=== PATIENT | female | born 1980 | race Caucasian/White ===

== ENCOUNTER → 2022-09-26 | Emergency (ER) | payer OTHER ==
[~2022-09-26] VITALS: Ht 152.4 cm; Wt 115.7 kg
== END | disposition home or self-care (01) ==
LOC: ER 07:34 → EDBD 07:37 → ER 07:37
DX: S92.311A Displaced fracture of first metatarsal bone, right foot, initial encounter for closed fracture (principal); S92.321A Displaced fracture of second metatarsal bone, right foot, initial encounter for closed fracture; S92.331A Displaced fracture of third metatarsal bone, right foot, initial encounter for closed fracture; X58.XXXA Exposure to other specified factors, initial encounter; Y93.89 Activity, other specified; Y92.89 Other specified places as the place of occurrence of the external cause; Y99.9 Unspecified external cause status; Z88.6 Allergy status to analgesic agent; Z88.0 Allergy status to penicillin

== ENCOUNTER 2022-09-30 07:05 | Outpatient (CLI) | payer OTHER ==
[~2022-09-30] VITALS: Ht 152.4 cm; Wt 115.7 kg
== END 2022-09-30 07:06 | disposition home or self-care (01) ==
LOC: LAB 07:05
PROVIDERS: ATTEND Orthopaedic Surgery
DX: D64.89 Other specified anemias (principal); E88.89 Other specified metabolic disorders; D68.8 Other specified coagulation defects; N39.0 Urinary tract infection, site not specified; A49.02 Methicillin resistant Staphylococcus aureus infection, unspecified site; Z76.89 Persons encountering health services in other specified circumstances; I49.9 Cardiac arrhythmia, unspecified; I10 Essential (primary) hypertension

== ENCOUNTER 2022-10-08 07:41 | Day surgery (SDC) | payer OTHER | END 2022-10-08 20:40 | disposition home or self-care (01) | LOC: CIR.AMB 07:41 | PROVIDERS: ATTEND Orthopaedic Surgery | DX: S92.201A Fracture of unspecified tarsal bone(s) of right foot, initial encounter for closed fracture (principal); S93.334A Other dislocation of right foot, initial encounter; S93.621A Sprain of tarsometatarsal ligament of right foot, initial encounter; Z88.6 Allergy status to analgesic agent; Z88.0 Allergy status to penicillin | CPT/HCPCS: 28615; 28485; L8699 ==

== ENCOUNTER 2022-11-14 14:27 | Outpatient (CLI) | payer OTHER | END 2022-11-14 14:33 | disposition home or self-care (01) | LOC: RAD 14:27 | PROVIDERS: ATTEND Orthopaedic Surgery | DX: S93.621D Sprain of tarsometatarsal ligament of right foot, subsequent encounter (principal); S92.321D Displaced fracture of second metatarsal bone, right foot, subsequent encounter for fracture with routine healing ==

== ENCOUNTER 2023-01-14 08:59 | Outpatient (CLI) | payer OTHER | END 2023-01-14 09:07 | disposition home or self-care (01) | LOC: RAD 08:59 | PROVIDERS: ATTEND Orthopaedic Surgery | DX: S93.621D Sprain of tarsometatarsal ligament of right foot, subsequent encounter (principal); S92.321D Displaced fracture of second metatarsal bone, right foot, subsequent encounter for fracture with routine healing ==

== ENCOUNTER 2023-01-14 09:56 | Outpatient (CLI) | payer OTHER | END 2023-01-14 09:59 | disposition home or self-care (01) | LOC: LAB 09:56 | PROVIDERS: ATTEND Orthopaedic Surgery | DX: M85.9 Disorder of bone density and structure, unspecified (principal); E83.42 Hypomagnesemia; E56.1 Deficiency of vitamin K ==

== ENCOUNTER 2023-01-28 14:16 | Outpatient (CLI) | payer OTHER | END 2023-01-28 14:30 | disposition home or self-care (01) | LOC: RAD 14:16 | PROVIDERS: ATTEND Specialist | DX: M25.571 Pain in right ankle and joints of right foot (principal) ==

== ENCOUNTER 2023-03-25 12:34 | Outpatient (CLI) | payer OTHER | END 2023-03-25 12:38 | disposition home or self-care (01) | LOC: NUCLEAR 12:34 | PROVIDERS: ATTEND Orthopaedic Surgery | DX: M81.0 Age-related osteoporosis without current pathological fracture (principal) ==

== ENCOUNTER 2023-04-23 12:37 | Outpatient (CLI) | payer OTHER | END 2023-04-23 12:48 | disposition home or self-care (01) | LOC: RAD 12:37 | PROVIDERS: ATTEND Orthopaedic Surgery | DX: S93.621D Sprain of tarsometatarsal ligament of right foot, subsequent encounter (principal); S92.321D Displaced fracture of second metatarsal bone, right foot, subsequent encounter for fracture with routine healing ==

== ENCOUNTER 2024-05-20 12:41 | Outpatient (CLI) | payer OTHER | END 2024-05-20 13:00 | disposition home or self-care (01) | LOC: RAD 12:41 | PROVIDERS: ATTEND Orthopaedic Surgery | DX: M79.671 Pain in right foot (principal); M25.571 Pain in right ankle and joints of right foot ==

== ENCOUNTER 2024-06-03 13:22 | Outpatient (CLI) | payer OTHER | END 2024-06-03 13:32 | disposition home or self-care (01) | LOC: RAD 13:22 | PROVIDERS: ATTEND Orthopaedic Surgery | DX: S92.354A Nondisplaced fracture of fifth metatarsal bone, right foot, initial encounter for closed fracture (principal) ==